=== PATIENT | male | born 1980 | race Two or more races ===

== ENCOUNTER 2019-02-22 15:18 | Outpatient (CLI) | payer BC | END 2019-02-22 15:40 | LOC: NEPHRO 15:18 | PROVIDERS: ATTEND Internal Medicine Nephrology | DX: R80.9 Proteinuria, unspecified (principal); N18.6 End stage renal disease | CPT/HCPCS: 99213 ==

== ENCOUNTER 2019-04-01 16:59 | Outpatient (CLI) | payer BC ==
[2019-04-02 06:54] LABS: BASOPHILS % 0.4 % (0.0-1.5); eGFR (Non-African) > 60
[2019-04-02 06:55] LABS: NEUTROPHILS # 3.3 # k/uL (1.4-7.7)
[2019-04-02 07:27] LABS: APPEARANCE,URINE CLEAR (CLEAR); COLOR,URINE YELLOW (YELLOW); OCCULT BLOOD,URINE TRACE-INTACT (NEGATIVE); UROBILINOGEN URINE 0.2 Eu (0.2-1.0)
[2019-04-04 08:31] LABS: A1C 5.2 % (<5.7)
== END 2019-04-01 17:02 ==
LOC: LAB 16:59
PROVIDERS: ATTEND Internal Medicine Nephrology
DX: N18.9 Chronic kidney disease, unspecified (principal)
CPT/HCPCS: 80053; 81002; 83036; 85025

== ENCOUNTER 2019-04-05 15:05 | Outpatient (CLI) | payer BC | END 2019-04-05 15:35 | LOC: NEPHRO 15:05 | PROVIDERS: ATTEND Internal Medicine Nephrology | DX: N28.9 Disorder of kidney and ureter, unspecified (principal) | CPT/HCPCS: 99212 ==